=== PATIENT | female | born 1955 | race African-American/Black ===

== ENCOUNTER 2018-04-08 03:53 | Inpatient (IN) | payer MEDICAID ==
[~2018-04-08] VITALS: Ht 172.7 cm; Wt 169.0 kg
[2018-04-08] VITALS (7 sets, daily range): BP systolic 122–150; BP diastolic 44–84
[~2018-04-08 03:53] MED LIST: ACET1TAB14 PO; AMLO10TA4 PO; ASPI-1158 PO; DIPH25TA62 MT; FURO10VI3 IVP; HYDR-4135 PO; POTA20TA82 PO
[2018-04-08] MEDS ORDERED: ALBUTEROL (0.083%) 2.5MG/3ML NEB HHN STA (03:58)
[2018-04-08] MEDS ORDERED: METHYLPREDNISOLONE SOD SUCC 125 MG/2 ML VIAL IV STA (03:58)
[2018-04-08] MEDS ORDERED: IPRATROPIUM BROMIDE (0.02%) 0.5MG/2.5ML NEB HHN STA (03:58)
[2018-04-08] MEDS ORDERED: MAGNESIUM 2 G PREMIX 50 ML IV ONE (04:00)
[2018-04-08] MEDS ORDERED: NITROGLYCERIN 0.4MG TABLET SL SL PRN (04:15)
[2018-04-08] MEDS ORDERED: NITROGLYCERIN OINT 1GM/INCH UDPKT TD ONE (04:15)
[2018-04-08 04:31] LABS: BG BASE EXCESS -2.4 mmol/L (-2.0-2.0); BG CARBOXYHEMOGLOBIN 0.8 % (0.5-1.5); BG DEOXYHEMOGLOBIN 3.6 % (0.0-5.0); BG FRACTION INSPIRED OXYGEN 28; BG HCO3 ACT 23.8 mmol/L (22.0-26.0); BG METHEMOGLOBIN 0.4 % (0.0-1.5); BG OXYGEN SATURATION 96.4 % (92.0-98.5); BG OXYHEMOGLOBIN 95.2 % (94.0-97.0); BG PCO2 46.3 mmHg (35.0-45.0); BG PH 7.328 (7.350-7.450); BG PO2 92.8 mmHg (75.0-100.0); BG SAMPLE SITE RIGHT RADIAL; BG VENT MODE NASAL CANNULA
[2018-04-08 04:45] LABS: BASOPHILS % 0.8 % (0.0-2.0); EOSINOPHILS % 4.8 % (0.0-5.0); HEMOGLOBIN. 12.7 g/dL (12.0-16.0); LYMPHOCYTES % 39.2 % (20.0-50.0); MEAN CORPUSCULAR HEMOGLOBIN 28.5 pg (28.0-32.0); MEAN CORPUSCULAR VOLUME 89.4 fL (81.0-99.0); MEAN PLATELET VOLUME 9.6 fl (7.4-10.4); MONOCYTES % 7.8 % (2.0-8.0); NEUTROPHILS % 47.4 % (40.0-76.0); PLATELET 146 x1000/uL (130-400); RED BLOOD CELL COUNT 4.47 mill/uL (4.2-5.4); RED CELL DISTRIBUTION WIDTH 16.3 % (11.6-14.6)
[2018-04-08 04:58] LABS: CHLORIDE 109 mEq/L (98-107)
[2018-04-08 05:05] LABS: PROTHROMBIN TIME 9.7 sec (9.1-11.1)
[2018-04-08] MEDS ORDERED: AZITHROMYCIN 500 MG in DEXT 5% WATER 250 ML IV NR (05:07)
[2018-04-08] MEDS ORDERED: CEFTRIAXONE 1 G PREMIX 50 ML IV NR (05:07)
[2018-04-08] MEDS ORDERED: ASPIRIN 81MG TABLET PO NR (05:45)
[2018-04-08] MEDS ORDERED: ACETAMINOPHEN 650MG/20.3ML UDC GT PRN (08:45)
[2018-04-08] MEDS ORDERED: ONDANSETRON HCL 4MG/2ML INJ IV PRN (08:45)
[2018-04-08] MEDS ORDERED: ACETAMINOPHEN 650MG SUPP PR PRN (08:45)
[2018-04-08] MEDS ORDERED: ACETAMINOPHEN 325MG TABLET PO PRN (08:45)
[2018-04-08] MEDS ORDERED: FUROSEMIDE 40MG/4ML VIAL IVP SCH (13:45)
[2018-04-08] MEDS: GUAIFENESIN 600MG ER TABLET PO SCH ×2 (14:45→22:11)
[2018-04-08] MEDS ORDERED: CLONIDINE 0.2MG TABLET PO PRN (15:30)
[2018-04-08 16:54] LABS: CREATINE KINASE MB FRACTION 3.3 ng/mL (0.5-3.6)
[2018-04-08] MEDS: AMLODIPINE 5MG TABLET PO SCH (17:00)
[2018-04-08] MEDS: CLONIDINE 0.1MG TABLET PO SCH (17:00)
[2018-04-08] MEDS ORDERED: INFLUENZA VIRUS VACCINE(AFLURIA) 0.5ML SYR IM ONE (17:45)
[2018-04-08] MEDS ORDERED: PNEUMOCOCCAL 23-VAL P-SAC VAC 0.5 ML IM ONE (17:45)
[2018-04-08] MEDS: POTASSIUM CHLORIDE 20MEQ/PACKET PO SCH (18:22)
[2018-04-08 18:54] LABS: HEPATITIS B SURFACE ANTIGEN NEGATIVE
[2018-04-08 19:22] LABS: HEPATITIS B CORE AB IGM NEGATIVE
[2018-04-08 19:23] LABS: HEPATITIS A AB IGM NEGATIVE (NEGATIVE)
[2018-04-08] MEDS: IPRATROPIUM/ALBUTEROL 0.5-3(2.5)MG/3ML NEB HHN SCH (20:54)
[2018-04-08] MEDS: HYDRALAZINE HCL 50MG TABLET PO SCH (22:12)
[2018-04-09] VITALS (10 sets, daily range): BP systolic 95–151; BP diastolic 41–77
[2018-04-09] MEDS: IPRATROPIUM/ALBUTEROL 0.5-3(2.5)MG/3ML NEB HHN SCH ×4 (01:08→20:27)
[2018-04-09] MEDS: FUROSEMIDE 40MG/4ML VIAL IVP SCH ×2 (05:06→16:32)
[2018-04-09] MEDS: HYDRALAZINE HCL 50MG TABLET PO SCH ×3 (05:07→21:13)
[2018-04-09 07:26] LABS: BASOPHILS % 0.3 % (0.0-2.0); HEMATOCRIT. 37.9 % (36.0-48.0); LYMPHOCYTES % 17.6 % (20.0-50.0); MEAN CORPUSCULAR HEMOGLOBIN 28.6 pg (28.0-32.0); MEAN CORPUSCULAR VOLUME 90.2 fL (81.0-99.0); MEAN PLATELET VOLUME 9.9 fl (7.4-10.4); MONOCYTES % 6.2 % (2.0-8.0); NEUTROPHILS % 75.9 % (40.0-76.0); PLATELET 145 x1000/uL (130-400); RED BLOOD CELL COUNT 4.21 mill/uL (4.2-5.4)
[2018-04-09 07:52] LABS: CHLORIDE 105 mEq/L (98-107)
[2018-04-09 08:26] LABS: HDL CHOLESTEROL 41 mg/dL (40-59); LDL CHOLESTEROL 103 mg/dL (5-100); T4 FREE 1.13 ng/dL (0.76-1.46)
[2018-04-09] MEDS: AMLODIPINE 5MG TABLET PO SCH ×2 (08:40→16:33)
[2018-04-09] MEDS: CLONIDINE 0.1MG TABLET PO SCH ×2 (08:40→16:33)
[2018-04-09] MEDS: GUAIFENESIN 600MG ER TABLET PO SCH ×2 (08:41→21:06)
[2018-04-09] MEDS: POTASSIUM CHLORIDE 20MEQ/PACKET PO SCH (08:42)
[2018-04-09 09:54] LABS: CLARITY URINE CLEAR (CLEAR); COLOR URINE YELLOW (YELLOW); KETONES URINE NEGATIVE (NEGATIVE); LEUKOCYTE ESTERASE URINE TRACE (NEGATIVE); NITRITE URINE NEGATIVE (NEGATIVE); OCCULT BLOOD URINE TRACE (NEGATIVE); PROTEIN URINE NEGATIVE (NEGATIVE); SPECIFIC GRAVITY URINE 1.006 (1.005-1.030); UROBILINOGEN URINE 0.2 E.U./dL (0.2-1.0)
[2018-04-09] MEDS ORDERED: PHENOL/SODIUM PHENOLATE 1.4% SRPAY 177ML MM PRN (12:30)
[2018-04-09] MEDS ORDERED: THROAT LOZENGES-BENZOCAINE/MENTH/CETYLPYRD CL LOZENGES MM PRN ×2 (12:30→14:45)
[2018-04-09] MEDS ORDERED: BENZONATATE 100MG CAPSULE PO PRN (12:30)
[2018-04-09 14:21] LABS: *AMPHETAMINES SCREEN URINE NEGATIVE (NEGATIVE); CANNABINOID URINE SCREEN NEGATIVE (NEGATIVE); PHENCYCLIDINE URINE SCREEN NEGATIVE (NEGATIVE)
[2018-04-09 14:22] LABS: *BARBITURATES SCREEN URINE NEGATIVE (NEGATIVE); *BENZODIAZEPINES SCREEN URINE NEGATIVE (NEGATIVE); *COCAINE SCREEN URINE NEGATIVE (NEGATIVE); METHADONE URINE SCREEN NEGATIVE (NEGATIVE); OPIATES URINE SCREEN NEGATIVE (NEGATIVE)
[2018-04-09] MEDS: FLUTICASONE PROPIONATE 50MCG/SPRAY BOTTLE BOTHNSTRLS SCH (14:23)
[2018-04-09] MEDS: POTASSIUM CHLORIDE 20MEQ TABLET SR PO SCH (16:32)
[2018-04-09] MEDS: HYDROCODONE/ACETAMINOPHEN 5/325MG TABLET PO PRN (18:23)
[2018-04-09] MEDS: BUDESONIDE 0.5MG/2ML NEB HHN SCH (20:28)
[2018-04-09] MEDS: MONTELUKAST SODIUM 10MG TABLET PO SCH (21:06)
[2018-04-10] VITALS (10 sets, daily range): BP systolic 105–150; BP diastolic 45–76
[2018-04-10] MEDS: FLUTICASONE PROPIONATE 50MCG/SPRAY BOTTLE BOTHNSTRLS SCH ×3 (00:09→20:51)
[2018-04-10] MEDS: IPRATROPIUM/ALBUTEROL 0.5-3(2.5)MG/3ML NEB HHN SCH ×4 (01:56→20:44)
[2018-04-10] MEDS: FUROSEMIDE 40MG/4ML VIAL IVP SCH ×2 (05:02→15:12)
[2018-04-10] MEDS: HYDRALAZINE HCL 50MG TABLET PO SCH ×3 (06:00→21:36)
[2018-04-10 07:22] LABS: BASOPHILS % 0.9 % (0.0-2.0); EOSINOPHILS % 5.6 % (0.0-5.0); HEMATOCRIT. 38.5 % (36.0-48.0); HEMOGLOBIN. 12.4 g/dL (12.0-16.0); MEAN CORPUSCULAR HEMOGLOBIN 29.1 pg (28.0-32.0); MEAN CORPUSCULAR VOLUME 90.2 fL (81.0-99.0); MEAN PLATELET VOLUME 9.8 fl (7.4-10.4); NEUTROPHILS % 51.5 % (40.0-76.0); PLATELET 165 x1000/uL (130-400); RED BLOOD CELL COUNT 4.27 mill/uL (4.2-5.4); RED CELL DISTRIBUTION WIDTH 16.6 % (11.6-14.6)
[2018-04-10] MEDS: BUDESONIDE 0.5MG/2ML NEB HHN SCH ×2 (07:54→20:45)
[2018-04-10 08:05] LABS: PHOSPHORUS 4.4 mg/dL (2.5-4.9)
[2018-04-10] MEDS: CLONIDINE 0.1MG TABLET PO SCH ×2 (09:02→17:00)
[2018-04-10] MEDS: AMLODIPINE 5MG TABLET PO SCH ×2 (09:03→17:00)
[2018-04-10] MEDS: GUAIFENESIN 600MG ER TABLET PO SCH ×2 (09:03→20:50)
[2018-04-10] MEDS: POTASSIUM CHLORIDE 20MEQ TABLET SR PO SCH (09:03)
[2018-04-10] MEDS: HYDROCODONE/ACETAMINOPHEN 5/325MG TABLET PO PRN (20:50)
[2018-04-10] MEDS: MONTELUKAST SODIUM 10MG TABLET PO SCH (20:50)
[2018-04-11] VITALS (12 sets, daily range): BP systolic 112–148; BP diastolic 53–97
[2018-04-11] MEDS: IPRATROPIUM/ALBUTEROL 0.5-3(2.5)MG/3ML NEB HHN SCH ×4 (01:11→20:56)
[2018-04-11] MEDS: FUROSEMIDE 40MG/4ML VIAL IVP SCH ×2 (04:03→17:09)
[2018-04-11] MEDS: HYDRALAZINE HCL 50MG TABLET PO SCH ×3 (05:52→21:19)
[2018-04-11 07:24] LABS: BASOPHILS % 0.6 % (0.0-2.0); EOSINOPHILS % 8.1 % (0.0-5.0); HEMATOCRIT. 39.4 % (36.0-48.0); HEMOGLOBIN. 12.5 g/dL (12.0-16.0); LYMPHOCYTES % 26.8 % (20.0-50.0); MEAN CORPUSCULAR HEMOGLOBIN 28.8 pg (28.0-32.0); MEAN CORPUSCULAR VOLUME 90.4 fL (81.0-99.0); MEAN PLATELET VOLUME 9.6 fl (7.4-10.4); MONOCYTES % 8.4 % (2.0-8.0); NEUTROPHILS % 56.1 % (40.0-76.0); PLATELET 144 x1000/uL (130-400); RED BLOOD CELL COUNT 4.35 mill/uL (4.2-5.4); RED CELL DISTRIBUTION WIDTH 16.4 % (11.6-14.6)
[2018-04-11 07:51] LABS: CHLORIDE 104 mEq/L (98-107); PHOSPHORUS 3.6 mg/dL (2.5-4.9)
[2018-04-11] MEDS: BUDESONIDE 0.5MG/2ML NEB HHN SCH ×2 (08:37→20:56)
[2018-04-11] MEDS: CLONIDINE 0.1MG TABLET PO SCH ×2 (08:58→17:00)
[2018-04-11] MEDS: FLUTICASONE PROPIONATE 50MCG/SPRAY BOTTLE BOTHNSTRLS SCH ×2 (08:58→21:20)
[2018-04-11] MEDS: AMLODIPINE 5MG TABLET PO SCH ×2 (08:59→17:00)
[2018-04-11] MEDS: POTASSIUM CHLORIDE 20MEQ TABLET SR PO SCH (08:59)
[2018-04-11] MEDS: GUAIFENESIN 600MG ER TABLET PO SCH ×2 (08:59→21:20)
[2018-04-11] MEDS ORDERED: DIPHENHYDRAMINE 25MG CAPSULE PO NR (17:00)
[2018-04-11] MEDS: HYDROCODONE/ACETAMINOPHEN 5/325MG TABLET PO PRN (20:12)
[2018-04-11] MEDS: MONTELUKAST SODIUM 10MG TABLET PO SCH (21:20)
[2018-04-12] VITALS (11 sets, daily range): BP systolic 99–139; BP diastolic 48–74
[2018-04-12] MEDS: IPRATROPIUM/ALBUTEROL 0.5-3(2.5)MG/3ML NEB HHN SCH ×3 (00:34→13:55)
[2018-04-12] MEDS: FUROSEMIDE 40MG/4ML VIAL IVP SCH ×2 (03:42→16:00)
[2018-04-12] MEDS: HYDRALAZINE HCL 50MG TABLET PO SCH ×2 (05:55→13:51)
[2018-04-12 06:52] LABS: BASOPHILS % 0.8 % (0.0-2.0); EOSINOPHILS % 7.8 % (0.0-5.0); HEMATOCRIT. 35.7 % (36.0-48.0); HEMOGLOBIN. 11.7 g/dL (12.0-16.0); LYMPHOCYTES % 32.5 % (20.0-50.0); MEAN CORPUSCULAR HEMOGLOBIN 29.2 pg (28.0-32.0); MEAN CORPUSCULAR VOLUME 89.3 fL (81.0-99.0); MEAN PLATELET VOLUME 9.1 fl (7.4-10.4); MONOCYTES % 8.5 % (2.0-8.0); NEUTROPHILS % 50.4 % (40.0-76.0); PLATELET 153 x1000/uL (130-400); RED CELL DISTRIBUTION WIDTH 15.5 % (11.6-14.6)
[2018-04-12 07:38] LABS: CHLORIDE 103 mEq/L (98-107)
[2018-04-12] MEDS: BUDESONIDE 0.5MG/2ML NEB HHN SCH (08:15)
[2018-04-12] MEDS: FLUTICASONE PROPIONATE 50MCG/SPRAY BOTTLE BOTHNSTRLS SCH (09:25)
[2018-04-12] MEDS: GUAIFENESIN 600MG ER TABLET PO SCH (09:26)
[2018-04-12] MEDS: CLONIDINE 0.1MG TABLET PO SCH ×2 (09:26→16:52)
[2018-04-12] MEDS: AMLODIPINE 5MG TABLET PO SCH ×2 (09:27→16:53)
[2018-04-12] MEDS: POTASSIUM CHLORIDE 20MEQ TABLET SR PO SCH (09:27)
[2018-04-12] MEDS ORDERED: CLON0.1T14 PO (12:14)
[2018-04-12] MEDS ORDERED: AMLO5TAB88 PO (12:14)
[2018-04-12] MEDS ORDERED: MONT10TA21 PO (12:14)
[2018-04-12] MEDS ORDERED: GUAI600T44 PO (12:14)
[2018-04-12] MEDS ORDERED: FURO40TA5 MT (12:14)
[2018-04-12] MEDS ORDERED: POTA20TA82 PO (12:14)
== END 2018-04-12 18:39 | disposition home or self-care (01) | DRG 133 ==
LOC: ER 03:53 → 5EST 05:42 → ENRESERV 09:55 → 5EST 17:39
PROVIDERS: ADMIT Internal Medicine; ATTEND Internal Medicine
PROC: 5A09357 Assistance with Respiratory Ventilation, Less than 24 Consecutive Hours, Continuous Positive Airway Pressure (ICD-10-PCS; principal; 2018-04-10)
PROC: 5A09357 Assistance with Respiratory Ventilation, Less than 24 Consecutive Hours, Continuous Positive Airway Pressure (ICD-10-PCS; 2018-04-11)
PROC: 5A09357 Assistance with Respiratory Ventilation, Less than 24 Consecutive Hours, Continuous Positive Airway Pressure (ICD-10-PCS; 2018-04-12)
DX: J96.01 Acute respiratory failure with hypoxia (principal); I50.33 Acute on chronic diastolic (congestive) heart failure; I27.20 Pulmonary hypertension, unspecified; E66.01 Morbid (severe) obesity due to excess calories; J44.1 Chronic obstructive pulmonary disease with (acute) exacerbation; Z99.81 Dependence on supplemental oxygen; Z68.43 Body mass index [BMI] 50.0-59.9, adult; I11.0 Hypertensive heart disease with heart failure; B18.2 Chronic viral hepatitis C; E11.9 Type 2 diabetes mellitus without complications; G47.33 Obstructive sleep apnea (adult) (pediatric); J00 Acute nasopharyngitis [common cold]; M19.90 Unspecified osteoarthritis, unspecified site; D64.9 Anemia, unspecified; G89.29 Other chronic pain; R00.1 Bradycardia, unspecified; Z79.82 Long term (current) use of aspirin; Z99.3 Dependence on wheelchair; Z88.0 Allergy status to penicillin; Z88.8 Allergy status to other drugs, medicaments and biological substances; Z79.899 Other long term (current) drug therapy; Z86.19 Personal history of other infectious and parasitic diseases; Z98.891 History of uterine scar from previous surgery
CPT/HCPCS: 36415; 36600; 71045; 80048; 80061; 80305; 82375; 82550; 82553; 82805; 83036; 83735; 83880; 84100; 84439; 84443; 84481; 84484; 86705; 86709; 86803; 87340; 90686; 90732; 93005; 93306; 93970; 94640; 94644; 94660; 96365; 96375; 97162; 97535; 99291; A6261; J0456; J0696; J1940; J2930; J3475; J7060; J7611; J7620; J7626; Q0163; A4315